=== PATIENT | female | born 1955 | race Caucasian/White ===

== ENCOUNTER 2022-09-25 12:59 | Observation (INO) | payer MEDICARE, BC ==
[~2022-09-25] VITALS: Ht 162.6 cm; Wt 78.6 kg
[2022-09-25 15:49] LABS: BASOPHILS % (AUTO) 0.3 % (0-1); EOSINOPHILS # (AUTO) 0.2 X10'3 (0-0.9); EOSINOPHILS % (AUTO) 4.2 % (0-6); HEMATOCRIT 37.2 % (35.0-45.0); HEMOGLOBIN 12.4 g/dl (12.0-16.0); LYMPHOCYTES # (AUTO) 1.9 X10'3 (1.1-4.8); LYMPHOCYTES % (AUTO) 34.1 % (21-51); MEAN CORPUSCULAR HEMOGLOBIN 28.6 PG (27.0-31.0); MEAN CORPUSCULAR HGB CONC 33.4 g/dL (33.0-36.5); MEAN CORPUSCULAR VOLUME 85.6 FL (78-98); MEAN PLATELET VOLUME 7.8 FL (7.4-10.4); MONOCYTES # (AUTO) 0.5 X10'3 (0-0.9); MONOCYTES % (AUTO) 8.7 % (2-12); NEUTROPHILS # (AUTO) 2.9 X10'3 (1.8-7.7); NEUTROPHILS % (AUTO) 52.7 % (42-75); PLATELET COUNT 214 X10'3 (140-440); RED BLOOD COUNT 4.35 X10'6 (4.20-5.60); RED CELL DISTRIBUTION WIDTH 13.7 % (11.5-14.5); WHITE BLOOD COUNT 5.6 X10'3 (4.5-11.0)
[2022-09-25 16:03] LABS: ALANINE AMINOTRANSFERASE 12 U/L (12-78); ALBUMIN 3.2 G/DL (3.4-5.0); ALKALINE PHOSPHATASE 62 IU/L (46-116); ANION GAP 5 (8-16); ASPARTATE AMINO TRANSFERASE 20 U/L (10-37); BILIRUBIN,TOTAL 0.4 MG/DL (0.1-1.0); BLOOD UREA NITROGEN 10 MG/DL (7-18); BUN/CREATININE RATIO 13.3 (10.0-20.0); CALCIUM 8.4 MG/DL (8.5-10.1); CHLORIDE 107 MMOL/L (99-107); CREATININE 0.75 MG/DL (0.40-0.90); GLUCOSE 96 MG/DL (70-104); POTASSIUM 3.4 MMOL/L (3.5-5.1); SODIUM 142 MMOL/L (135-145); TOTAL CARBON DIOXIDE 29.6 MMOL/L (24-32); TOTAL PROTEIN 6.4 G/DL (6.4-8.2); eGFR 77 ML/MIN
[2022-09-25 16:39] LABS: COLOR,URINE YELLOW (Yellow); GLUCOSE, URINE NEGATIVE (Neg); KETONES,URINE NEGATIVE (Neg); LEUKOCYTE ESTERASE ,URINE SMALL (Neg); NITRITES, URINE NEGATIVE (Neg); OCCULT BLOOD,URINE NEGATIVE (Neg); PROTEIN,URINE NEGATIVE (Neg); UROBILINOGEN,URINE 0.2 E.U/dL (0.2-1.0)
[2022-09-25 16:43] LABS: UA COLLECTION TYPE CLN CATCH MIDSTREAM
[2022-09-25 16:48] LABS: BACTERIA,URINE 1+ /HPF (Neg); RBC,URINE NONE SEEN /HPF (0-2); SQUAMOUS EPITHELIAL CELL,UR FEW /LPF (FEW)
[2022-09-25 16:49] LABS: CLARITY,URINE SLIGHTLY CLOUDY (Clear)
[2022-09-25] MEDS ORDERED: OMEP40CA21 PO (17:01)
[2022-09-25] MEDS ORDERED: FLUT1BLS10 PO (17:01)
[2022-09-25] MEDS ORDERED: FAMO40TA58 PO (17:01)
[2022-09-25] MEDS ORDERED: TOPI25TA49 PO (17:01)
[2022-09-25] MEDS ORDERED: ROSU10TA28 PO (17:01)
[2022-09-25] MEDS ORDERED: MONT-40 PO (17:01)
[2022-09-25] MEDS ORDERED: TRAZ-251 PO (17:01)
[2022-09-25] MEDS ORDERED: TRAM50TA2 PO (17:01)
[2022-09-25] MEDS ORDERED: DULO30CA52 PO (17:05)
[2022-09-25] MEDS ORDERED: ALBU8HFA PO (17:06)
[2022-09-25] MEDS ORDERED: clopidogrel 300mg tablet PO ONE (17:25)
[2022-09-25] MEDS ORDERED: ondansetron/PF 4mg/2ml inj IV PRN (17:25)
[2022-09-25] MEDS ORDERED: magnesium 4gm in 100ml NS 100 ML IV PRN (17:25)
[2022-09-25] MEDS ORDERED: aspirin 81mg, enteric-coated 1 TAB TABLET.DR PO ONE (17:25)
[2022-09-25] MEDS ORDERED: mag hydrox/Alum hydrox/simeth 30ml oral suspension PO PRN (17:25)
[2022-09-25] MEDS ORDERED: atorvastatin 20mg tablet PO ONE (17:25)
[2022-09-25] MEDS ORDERED: potassium Cl 40MEQ/1/2NS 520ml 520 ML IV PRN (17:25)
[2022-09-25] MEDS ORDERED: potassium Cl 20 mEq SR tablet PO PRN ×2 (17:25)
[2022-09-25] MEDS ORDERED: clopidogrel 75mg tablet PO ONE (17:50)
[2022-09-25] MEDS ORDERED: iohexol 350MG/ML 100ml bottle IV ONE (17:53)
--- NOTE | 2022-09-25 18:04 | NUR ---
Called MRI regarding patient's order for MRI. information technology director told me that they cannot do MRI on patient with spinal stimulator. I told this patient. Patient clarified that it was not a spinal stimulator but a TENS unit. I called MRI back to let him know that its a TENS unit. The information technology director said to me that either way, they can't still do MRI to the patient due to safety issue. ANNMARIE Tobar was told about the MRI cannot get done due to safety issue
[2022-09-25] MEDS ORDERED: CefTRIAXone/D5W-Rocephin 1gm 50 ML IV SCH ×2 (18:26→21:36)
[2022-09-25] MEDS ORDERED: albuterol 2.5 MG/3 ML nebule NEB PRN (18:30)
[2022-09-25] MEDS ORDERED: traZODone 50mg tablet PO PRN (18:30)
[2022-09-25] MEDS ORDERED: traMADol 50MG tablet PO PRN (18:30)
[2022-09-25] MEDS: normal saline 1000ml 1,000 ML IV SCH (18:47)
[2022-09-25] MEDS: K and/or MAG REPLACEMENT MC SCH (20:00)
[2022-09-25] MEDS: docusate sod 100mg capsule PO SCH (20:00)
[2022-09-25 22:00] VITALS: BP 125/68
[2022-09-26 02:00] VITALS: BP 126/47
--- NOTE | 2022-09-26 02:00 | NUR ---
Pt requested for SCD's to be turned off at this time. Will continue to monitor.
[2022-09-26] MEDS: normal saline 1000ml 1,000 ML IV SCH (04:32)
[2022-09-26 05:58] LABS: ANION GAP 4 (8-16); BLOOD UREA NITROGEN 8 MG/DL (7-18); CHLORIDE 112 MMOL/L (99-107); GLUCOSE 122 MG/DL (70-104); POTASSIUM 3.9 MMOL/L (3.5-5.1); SODIUM 145 MMOL/L (135-145); TOTAL CARBON DIOXIDE 29.2 MMOL/L (24-32)
[2022-09-26 05:59] LABS: ALANINE AMINOTRANSFERASE 13 U/L (12-78); ALBUMIN 2.8 G/DL (3.4-5.0); ALBUMIN/GLOBULIN RATIO 0.8 (1.1-1.5); ALKALINE PHOSPHATASE 59 IU/L (46-116); ASPARTATE AMINO TRANSFERASE 16 U/L (10-37); BASOPHILS % (AUTO) 0.5 % (0-1); BILIRUBIN,TOTAL 0.3 MG/DL (0.1-1.0); BUN/CREATININE RATIO 9.4 (10.0-20.0); CALCIUM 8.3 MG/DL (8.5-10.1); CHOL/HDL RATIO 2.5 (0.00-4.99); CHOLESTEROL 118 MG/DL (0-200); CREATININE 0.85 MG/DL (0.40-0.90); EOSINOPHILS # (AUTO) 0.2 X10'3 (0-0.9); EOSINOPHILS % (AUTO) 4.7 % (0-6); HDL CHOLESTEROL 47 MG/DL (35-60); HEMATOCRIT 35.6 % (35.0-45.0); HEMOGLOBIN 12.1 g/dl (12.0-16.0); LDL CHOLESTEROL 52 MG/DL (50-100); LYMPHOCYTES # (AUTO) 1.5 X10'3 (1.1-4.8); LYMPHOCYTES % (AUTO) 30.6 % (21-51); MAGNESIUM 1.8 MG/DL (1.5-2.4); MEAN CORPUSCULAR HEMOGLOBIN 28.9 PG (27.0-31.0); MEAN CORPUSCULAR HGB CONC 34.1 g/dL (33.0-36.5); MEAN CORPUSCULAR VOLUME 84.8 FL (78-98); MEAN PLATELET VOLUME 8.1 FL (7.4-10.4); MONOCYTES # (AUTO) 0.5 X10'3 (0-0.9); MONOCYTES % (AUTO) 9.8 % (2-12); NEUTROPHILS # (AUTO) 2.6 X10'3 (1.8-7.7); NEUTROPHILS % (AUTO) 54.4 % (42-75); PLATELET COUNT 189 X10'3 (140-440); RED BLOOD COUNT 4.19 X10'6 (4.20-5.60); RED CELL DISTRIBUTION WIDTH 13.4 % (11.5-14.5); TOTAL PROTEIN 6.3 G/DL (6.4-8.2); TRIGLYCERIDES 121 MG/DL (20-135); WHITE BLOOD COUNT 4.9 X10'3 (4.5-11.0); eGFR 67 ML/MIN
[2022-09-26 06:00] VITALS: BP 135/88
--- NOTE | 2022-09-26 07:06 | NUR ---
Problems reprioritized. Patient report given, questions answered & plan of care reviewed with Mylene MAX
[2022-09-26] MEDS ORDERED: pantoprazole 40mg Tablet.DR PO SCH (08:00)
[2022-09-26] MEDS ORDERED: aspirin 81mg, enteric-coated 1 TAB TABLET.DR PO SCH (08:00)
[2022-09-26] MEDS ORDERED: montelukast 10mg tablet PO SCH (08:00)
[2022-09-26] MEDS ORDERED: clopidogrel 75mg tablet PO SCH (08:00)
[2022-09-26] MEDS: K and/or MAG REPLACEMENT MC SCH (08:00)
[2022-09-26] MEDS ORDERED: duloxetine 30mg CAPSULE.DR PO SCH (08:00)
[2022-09-26] MEDS ORDERED: topiramate 25mg tablet PO SCH (08:00)
[2022-09-26] MEDS: docusate sod 100mg capsule PO SCH (08:09)
[2022-09-26 10:00] VITALS: BP 144/66
[2022-09-26] MEDS ORDERED: DULO30CA52 PO (13:10)
[2022-09-26] MEDS ORDERED: ASPI-1071 PO (13:10)
[2022-09-26] MEDS ORDERED: TRAZ-251 PO (13:10)
[2022-09-26] MEDS ORDERED: CLOP75TA34 PO (13:10)
[2022-09-26] MEDS ORDERED: TRAM50TA2 PO (13:10)
--- NOTE | 2022-09-26 14:15 | NUR ---
patient d/c this afternoon via wheelchair, RN went over d/c instructions with patient and spouse in room. Patient will make follow up appt
[2022-09-26] MEDS ORDERED: ROSUVASTATIN CALCIUM 5 MG TABLET PO SCH (21:00)
== END 2022-09-26 14:10 | disposition home or self-care (01) ==
LOC: ER 13:00 → ED HOLD 17:37 → ORTHO 4S 21:34
PROVIDERS: ADMIT Family Medicine; ATTEND Family Medicine
DX: G45.9 Transient cerebral ischemic attack, unspecified (principal); I63.9 Cerebral infarction, unspecified; K21.9 Gastro-esophageal reflux disease without esophagitis; J45.909 Unspecified asthma, uncomplicated; G43.909 Migraine, unspecified, not intractable, without status migrainosus; N30.10 Interstitial cystitis (chronic) without hematuria; R82.81 Pyuria; E87.6 Hypokalemia; F41.9 Anxiety disorder, unspecified; Z87.891 Personal history of nicotine dependence; Z79.02 Long term (current) use of antithrombotics/antiplatelets; Z79.82 Long term (current) use of aspirin; Z90.710 Acquired absence of both cervix and uterus; Z79.899 Other long term (current) drug therapy
CPT/HCPCS: 36415; 80053; 80061; 81001; 83735; 84484; 85025; 87081; 87088; 93005; 93306; 96361; 96365; 97161; 97530; 99284; G0378; J0696; J7030; J3490; Q9967

== ENCOUNTER 2023-11-14 18:19 | Inpatient (IN) | payer MEDICARE, BC ==
[~2023-11-14] VITALS: Ht 162.6 cm; Wt 76.3 kg
[~2023-11-14 18:19] MED LIST: ALBU8HFA PO; ASPI-1071 PO; CLOP75TA34 PO; DULO30CA52 PO; FLUT1BLS10 PO; MONT-40 PO; OMEP40CA21 PO; ROSU10TA28 PO; TOPI25TA49 PO; TRAM50TA2 PO; TRAZ-251 PO
[2023-11-14] MEDS: normal saline 1000ml 1,000 ML IV SCH (19:30)
[2023-11-14] MEDS ORDERED: potassium Cl 40MEQ/1/2NS 520ml 520 ML IV PRN (19:30)
[2023-11-14] MEDS ORDERED: ondansetron 4mg rapidly disintigrating tab PO PRN (19:30)
[2023-11-14] MEDS ORDERED: potassium Cl 20 mEq SR tablet PO PRN ×2 (19:30)
[2023-11-14] MEDS ORDERED: magnesium 2GM in 50ml NS 50 ML IV PRN (19:30)
[2023-11-14] MEDS ORDERED: magnesium hydroxide 30ml (MOM) UD suspension PO PRN (19:30)
[2023-11-14] MEDS ORDERED: acetaminophen 325mg tablet PO PRN (19:30)
[2023-11-14] MEDS ORDERED: magnesium 4gm in 100ml NS 100 ML IV PRN (19:30)
[2023-11-14] MEDS: ringers solution, lacted 1,000 ML IV ONE (19:42)
[2023-11-14 19:49] LABS: BASOPHILS # (AUTO) 0.1 X10'3 (0-0.2); BASOPHILS % (AUTO) 0.6 % (0-1); BILIRUBIN,URINE NEGATIVE (Neg); CLARITY,URINE CLEAR (Clear); COLOR,URINE ORANGE (Yellow); EOSINOPHILS # (AUTO) 0.3 X10'3 (0-0.9); EOSINOPHILS % (AUTO) 2.5 % (0-6); GLUCOSE, URINE NEGATIVE (Neg); HEMATOCRIT 39.6 % (35.0-45.0); HEMOGLOBIN 13.2 g/dl (12.0-16.0); KETONES,URINE NEGATIVE (Neg); LEUKOCYTE ESTERASE ,URINE NEGATIVE (Neg); LYMPHOCYTES # (AUTO) 1.9 X10'3 (1.1-4.8); LYMPHOCYTES % (AUTO) 14.2 % (21-51); MEAN CORPUSCULAR HGB CONC 33.4 g/dL (33.0-36.5); MEAN CORPUSCULAR VOLUME 86.9 FL (78-98); MEAN PLATELET VOLUME 7.9 FL (7.4-10.4); MONOCYTES # (AUTO) 1.3 X10'3 (0-0.9); MONOCYTES % (AUTO) 9.4 % (2-12); NEUTROPHILS # (AUTO) 9.9 X10'3 (1.8-7.7); NEUTROPHILS % (AUTO) 73.3 % (42-75); OCCULT BLOOD,URINE NEGATIVE (Neg); PH,URINE 5.5 (4.8-8.0); PLATELET COUNT 269 X10'3 (140-440); PROTEIN,URINE NEGATIVE (Neg); RED BLOOD COUNT 4.56 X10'6 (4.20-5.60); RED CELL DISTRIBUTION WIDTH 14.5 % (11.5-14.5); UROBILINOGEN,URINE 0.2 E.U/dL (0.2-1.0); WHITE BLOOD COUNT 13.5 X10'3 (4.5-11.0)
[2023-11-14] MEDS ORDERED: iohexol 300mg/ml 100ml inj. ONE (19:51)
[2023-11-14 19:52] LABS: NITRITES, URINE NEGATIVE (Neg); UA COLLECTION TYPE CLN CATCH MIDSTREAM
[2023-11-14] MEDS: docusate sod 100mg capsule PO SCH (20:00)
[2023-11-14] MEDS: K and/or MAG REPLACEMENT MC SCH (20:00)
[2023-11-14 20:05] LABS: APTT 26 SECONDS (22-32); PROTHROMBIN TIME 10.8 SECONDS (9.0-12.0)
[2023-11-14 20:06] LABS: ALBUMIN 3.3 G/DL (3.4-5.0); ANION GAP 9 (8-16); BLOOD UREA NITROGEN 11 MG/DL (7-18); BUN/CREATININE RATIO 10.6 (10.0-20.0); CALCIUM 8.3 MG/DL (8.5-10.1); CHLORIDE 106 MMOL/L (99-107); CREATININE 1.04 MG/DL (0.40-0.90); GLUCOSE 128 MG/DL (70-104); LIPASE 21 U/L (16-77); MAGNESIUM 1.5 MG/DL (1.5-2.4); PHOSPHORUS 3.6 MG/DL (2.3-4.5); POTASSIUM 4.3 MMOL/L (3.5-5.1); SODIUM 140 MMOL/L (135-145); TOTAL CARBON DIOXIDE 25.3 MMOL/L (24-32); eCRCL 43 ML/MIN; eGFR 53 ML/MIN
[2023-11-14] MEDS: HYDROmorphone inj. 0.5 MG/0.5 ML DISP.SYRIN IV PRN (20:21)
[2023-11-14] MEDS: ondansetron/PF 4mg/2ml inj IV PRN (22:39)
[2023-11-14] MEDS ORDERED: sevoflurane 250ml liquid IH ONE (23:02)
[2023-11-14] MEDS ORDERED: proCHLORperazine 10 MG/2 ml inj IV PRN (23:05)
[2023-11-14] MEDS ORDERED: ondansetron/PF 4mg/2ml inj IV PRN (23:05)
[2023-11-14] MEDS ORDERED: morphine 2 MG/ML inj. syringe IV PRN (23:05)
[2023-11-14] MEDS ORDERED: meperidine/PF 25mg/ml syringe IV PRN ×2 (23:05)
[2023-11-14] MEDS ORDERED: ringers solution, lacted 1,000 ML IV SCH (23:05)
[2023-11-14] MEDS ORDERED: enalaprilat dihydrate 2.5mg/2ml vial IV PRN (23:05)
[2023-11-14] MEDS ORDERED: midazolam 1 mg/ML 2ml injection ONE (23:10)
[2023-11-14] MEDS ORDERED: fentaNYL /PF 50mcg/ml 5ml ampule ONE (23:11)
[2023-11-14] MEDS ORDERED: rocuronium 10mg/ml inj IV ONE (23:11)
[2023-11-14] MEDS ORDERED: propofol inj 20 ML IV ONE (23:11)
[2023-11-14] MEDS ORDERED: ceFOXitin 1000 MG inj ONE ×2 (23:29)
[2023-11-15] VITALS (29 sets, daily range): BP systolic 129–183; BP diastolic 54–96; PULSE 65–94; RESP 14–31; TEMP 97.4–98.9; O2SAT 92–99
[2023-11-15] MEDS ORDERED: dexamethasone sod phosphate 4mg/ml inj. ONE (00:24)
[2023-11-15] MEDS ORDERED: ondansetron/PF 4mg/2ml inj ONE (00:24)
[2023-11-15] MEDS ORDERED: BUPIVACAINE liposomal/PF 13.3 MG/ML vial IM ONE (00:30)
[2023-11-15] MEDS ORDERED: BUPIVAcaine/PF 2.5mg/ml (0.25%) 10ml vial ONE (00:30)
[2023-11-15] MEDS ORDERED: naloxone 0.4 mg/ml inj IV PRN (00:45)
[2023-11-15] MEDS ORDERED: sugammadex 200mg/2ml injection IV ONE (00:49)
[2023-11-15] MEDS: meperidine/PF 25mg/ml syringe IV PRN (01:04)
[2023-11-15] MEDS: morphine 4 MG/ML inj SYRINge IV PRN (01:09)
[2023-11-15] MEDS: labetalol 20mg/4ml (5mg/ml) syringe IV PRN (01:09)
[2023-11-15] MEDS: HYDROmorphone inj. 0.5 MG/0.5 ML DISP.SYRIN IV ONE (01:53)
[2023-11-15 08:02] LABS: BASOPHILS % (AUTO) 0.1 % (0-1); EOSINOPHILS % (AUTO) 0.1 % (0-6); HEMATOCRIT 37.9 % (35.0-45.0); HEMOGLOBIN 12.5 g/dl (12.0-16.0); LYMPHOCYTES # (AUTO) 0.5 X10'3 (1.1-4.8); LYMPHOCYTES % (AUTO) 4.3 % (21-51); MEAN CORPUSCULAR HEMOGLOBIN 28.5 PG (27.0-31.0); MEAN CORPUSCULAR HGB CONC 32.9 g/dL (33.0-36.5); MEAN CORPUSCULAR VOLUME 86.7 FL (78-98); MEAN PLATELET VOLUME 8.2 FL (7.4-10.4); MONOCYTES # (AUTO) 0.5 X10'3 (0-0.9); MONOCYTES % (AUTO) 4.6 % (2-12); NEUTROPHILS # (AUTO) 10.2 X10'3 (1.8-7.7); NEUTROPHILS % (AUTO) 90.9 % (42-75); PLATELET COUNT 231 X10'3 (140-440); RED BLOOD COUNT 4.38 X10'6 (4.20-5.60); RED CELL DISTRIBUTION WIDTH 14.4 % (11.5-14.5); WHITE BLOOD COUNT 11.2 X10'3 (4.5-11.0)
[2023-11-15 08:22] LABS: ALANINE AMINOTRANSFERASE 28 U/L (12-78); ALBUMIN 2.8 G/DL (3.4-5.0); ALBUMIN/GLOBULIN RATIO 0.8 (1.1-1.5); ALKALINE PHOSPHATASE 54 IU/L (46-116); ANION GAP 7 (8-16); ASPARTATE AMINO TRANSFERASE 26 U/L (10-37); BLOOD UREA NITROGEN 10 MG/DL (7-18); CALCIUM 7.8 MG/DL (8.5-10.1); CHLORIDE 104 MMOL/L (99-107); GLUCOSE 178 MG/DL (70-104); MAGNESIUM 1.3 MG/DL (1.5-2.4); PHOSPHORUS 3.9 MG/DL (2.3-4.5); POTASSIUM 4.3 MMOL/L (3.5-5.1); SODIUM 138 MMOL/L (135-145); TOTAL CARBON DIOXIDE 27.1 MMOL/L (24-32); TOTAL PROTEIN 6.5 G/DL (6.4-8.2); eCRCL 46 ML/MIN; eGFR 55 ML/MIN
[2023-11-15] MEDS: piperacillin/tazo 3.375gm/50ml 50 ML IV SCH (08:56)
[2023-11-15] MEDS: atorvastatin 20mg tablet PO SCH (21:00)
[2023-11-15] MEDS: magnesium Cl slow-release 64mg tablet PO PRN (21:33)
[2023-11-15] MEDS: traZODone 50mg tablet PO PRN (21:42)
[2023-11-16] VITALS (8 sets, daily range): BP systolic 129–155; BP diastolic 58–89; PULSE 84–104; RESP 16–22; TEMP 97.2–98.7; O2SAT 90–100
[2023-11-16 06:43] LABS: BASOPHILS % (AUTO) 0.1 % (0-1); EOSINOPHILS # (AUTO) 0.1 X10'3 (0-0.9); EOSINOPHILS % (AUTO) 0.7 % (0-6); HEMATOCRIT 32.6 % (35.0-45.0); HEMOGLOBIN 11.1 g/dl (12.0-16.0); LYMPHOCYTES # (AUTO) 1.4 X10'3 (1.1-4.8); LYMPHOCYTES % (AUTO) 13.2 % (21-51); MEAN CORPUSCULAR HEMOGLOBIN 29.2 PG (27.0-31.0); MEAN CORPUSCULAR VOLUME 86.1 FL (78-98); MONOCYTES % (AUTO) 9.7 % (2-12); NEUTROPHILS % (AUTO) 76.3 % (42-75); PLATELET COUNT 221 X10'3 (140-440); RED BLOOD COUNT 3.79 X10'6 (4.20-5.60); RED CELL DISTRIBUTION WIDTH 14.2 % (11.5-14.5); WHITE BLOOD COUNT 10.5 X10'3 (4.5-11.0)
[2023-11-16 07:01] LABS: ALANINE AMINOTRANSFERASE 17 U/L (12-78); ALBUMIN 2.5 G/DL (3.4-5.0); ALBUMIN/GLOBULIN RATIO 0.7 (1.1-1.5); ALKALINE PHOSPHATASE 44 IU/L (46-116); ANION GAP 11 (8-16); ASPARTATE AMINO TRANSFERASE 15 U/L (10-37); BLOOD UREA NITROGEN 12 MG/DL (7-18); CALCIUM 7.4 MG/DL (8.5-10.1); CHLORIDE 104 MMOL/L (99-107); GLUCOSE 113 MG/DL (70-104); MAGNESIUM 1.6 MG/DL (1.5-2.4); PHOSPHORUS 2.2 MG/DL (2.3-4.5); POTASSIUM 3.6 MMOL/L (3.5-5.1); SODIUM 138 MMOL/L (135-145); TOTAL CARBON DIOXIDE 23.3 MMOL/L (24-32); TOTAL PROTEIN 6.2 G/DL (6.4-8.2); eCRCL 46 ML/MIN; eGFR 55 ML/MIN
[2023-11-16] MEDS: topiramate 25mg tablet PO SCH (08:00)
[2023-11-16] MEDS: montelukast 10mg tablet PO SCH (08:00)
[2023-11-16] MEDS: duloxetine 30mg CAPSULE.DR PO SCH (08:00)
[2023-11-16] MEDS: pantoprazole 40mg Tablet.DR PO SCH (08:00)
[2023-11-17] VITALS (8 sets, daily range): BP systolic 139–153; BP diastolic 58–92; PULSE 79–101; RESP 18–24; TEMP 97–97.8; O2SAT 92–98
[2023-11-17 06:57] LABS: BASOPHILS % (AUTO) 0.4 % (0-1); EOSINOPHILS # (AUTO) 0.4 X10'3 (0-0.9); EOSINOPHILS % (AUTO) 4.2 % (0-6); HEMATOCRIT 32.3 % (35.0-45.0); HEMOGLOBIN 10.8 g/dl (12.0-16.0); LYMPHOCYTES # (AUTO) 1.3 X10'3 (1.1-4.8); LYMPHOCYTES % (AUTO) 15.3 % (21-51); MEAN CORPUSCULAR HEMOGLOBIN 29.4 PG (27.0-31.0); MEAN CORPUSCULAR HGB CONC 33.6 g/dL (33.0-36.5); MEAN CORPUSCULAR VOLUME 87.4 FL (78-98); MEAN PLATELET VOLUME 7.8 FL (7.4-10.4); MONOCYTES # (AUTO) 0.8 X10'3 (0-0.9); MONOCYTES % (AUTO) 9.2 % (2-12); NEUTROPHILS % (AUTO) 70.9 % (42-75); PLATELET COUNT 239 X10'3 (140-440); RED BLOOD COUNT 3.69 X10'6 (4.20-5.60); RED CELL DISTRIBUTION WIDTH 13.9 % (11.5-14.5); WHITE BLOOD COUNT 8.5 X10'3 (4.5-11.0)
[2023-11-17 07:14] LABS: ALANINE AMINOTRANSFERASE 20 U/L (12-78); ALBUMIN 2.2 G/DL (3.4-5.0); ALBUMIN/GLOBULIN RATIO 0.5 (1.1-1.5); ALKALINE PHOSPHATASE 47 IU/L (46-116); ANION GAP 8 (8-16); ASPARTATE AMINO TRANSFERASE 21 U/L (10-37); BILIRUBIN,TOTAL 1.1 MG/DL (0.1-1.0); BLOOD UREA NITROGEN 12 MG/DL (7-18); BUN/CREATININE RATIO 12.4 (10.0-20.0); CALCIUM 8.1 MG/DL (8.5-10.1); CHLORIDE 107 MMOL/L (99-107); CREATININE 0.97 MG/DL (0.40-0.90); GLUCOSE 84 MG/DL (70-104); MAGNESIUM 1.8 MG/DL (1.5-2.4); PHOSPHORUS 2.3 MG/DL (2.3-4.5); POTASSIUM 3.5 MMOL/L (3.5-5.1); SODIUM 140 MMOL/L (135-145); TOTAL PROTEIN 6.3 G/DL (6.4-8.2); eCRCL 47 ML/MIN; eGFR 57 ML/MIN
[2023-11-18] MEDS: HYDROmorphone inj. 0.5 MG/0.5 ML DISP.SYRIN IV PRN (00:33)
[2023-11-18] MEDS: mag hydrox/Alum hydrox/simeth 30ml oral suspension PO PRN (00:43)
[2023-11-18] MEDS: metoclopramide 5 mg/ml inj IV PRN (04:31)
[2023-11-18 06:00] VITALS: BP 121/65; PULSE 81; RESP 13; TEMP 96.6; O2SAT 93
[2023-11-18 06:51] LABS: BASOPHILS % (AUTO) 0.2 % (0-1); EOSINOPHILS # (AUTO) 0.1 X10'3 (0-0.9); EOSINOPHILS % (AUTO) 1.2 % (0-6); HEMATOCRIT 38.1 % (35.0-45.0); HEMOGLOBIN 12.5 g/dl (12.0-16.0); LYMPHOCYTES # (AUTO) 1.1 X10'3 (1.1-4.8); LYMPHOCYTES % (AUTO) 9.1 % (21-51); MEAN CORPUSCULAR HEMOGLOBIN 28.6 PG (27.0-31.0); MEAN CORPUSCULAR HGB CONC 32.7 g/dL (33.0-36.5); MEAN CORPUSCULAR VOLUME 87.4 FL (78-98); MEAN PLATELET VOLUME 7.8 FL (7.4-10.4); MONOCYTES % (AUTO) 8.1 % (2-12); NEUTROPHILS # (AUTO) 9.6 X10'3 (1.8-7.7); NEUTROPHILS % (AUTO) 81.4 % (42-75); PLATELET COUNT 338 X10'3 (140-440); RED BLOOD COUNT 4.36 X10'6 (4.20-5.60); RED CELL DISTRIBUTION WIDTH 14.2 % (11.5-14.5); WHITE BLOOD COUNT 11.8 X10'3 (4.5-11.0)
[2023-11-18 06:53] LABS: ALBUMIN 1.8 G/DL (3.4-5.0); ALBUMIN/GLOBULIN RATIO 0.5 (1.1-1.5); ALKALINE PHOSPHATASE 36 IU/L (46-116); ANION GAP 11 (8-16); ASPARTATE AMINO TRANSFERASE 14 U/L (10-37); BILIRUBIN,TOTAL 0.5 MG/DL (0.1-1.0); BLOOD UREA NITROGEN 11 MG/DL (7-18); BUN/CREATININE RATIO 14.7 (10.0-20.0); CALCIUM 7.4 MG/DL (8.5-10.1); CHLORIDE 105 MMOL/L (99-107); CREATININE 0.75 MG/DL (0.40-0.90); GLUCOSE 155 MG/DL (70-104); MAGNESIUM 1.8 MG/DL (1.5-2.4); PHOSPHORUS 2.6 MG/DL (2.3-4.5); POTASSIUM 3.7 MMOL/L (3.5-5.1); SODIUM 137 MMOL/L (135-145); TOTAL CARBON DIOXIDE 21.2 MMOL/L (24-32); TOTAL PROTEIN 5.5 G/DL (6.4-8.2); eCRCL 61 ML/MIN; eGFR 77 ML/MIN
[2023-11-18 06:59] LABS: ALANINE AMINOTRANSFERASE < 6 U/L (12-78)
[2023-11-18 08:00] VITALS: RESP 18; O2SAT 93
[2023-11-18 11:00] VITALS: BP 155/65; PULSE 73; RESP 19; TEMP 97.1; O2SAT 94
[2023-11-18] MEDS ORDERED: METR-159 PO (11:54)
[2023-11-18] MEDS ORDERED: CIPR-259 PO (11:54)
[2023-11-18] MEDS: HYDROcodone/acetaminophen 10/325mg tab PO PRN (13:40)
[2023-11-18 15:00] VITALS: BP 135/70; PULSE 80; RESP 18; TEMP 97.5; O2SAT 95
== END 2023-11-18 15:55 | disposition home or self-care (01) | DRG 330 ==
LOC: ER 18:21 → ED HOLD 19:29 → EDBEDREQ 21:36 → PCU 3S 11-15 02:20
PROVIDERS: ADMIT Surgery Surgical Critical Care; ATTEND Internal Medicine
PROC: 0D9670Z Drainage of Stomach with Drainage Device, Via Natural or Artificial Opening (ICD-10-PCS; 2023-11-14)
PROC: BW211ZZ Computerized Tomography (CT Scan) of Abdomen and Pelvis using Low Osmolar Contrast (ICD-10-PCS; principal; 2023-11-14 23:02)
PROC: 0DBF0ZZ Excision of Right Large Intestine, Open Approach (ICD-10-PCS; 2023-11-15)
DX: K56.2 Volvulus (principal); K46.0 Unspecified abdominal hernia with obstruction, without gangrene; R65.10 Systemic inflammatory response syndrome (SIRS) of non-infectious origin without acute organ dysfunction; J45.909 Unspecified asthma, uncomplicated; I48.91 Unspecified atrial fibrillation; G89.29 Other chronic pain; F32.A Depression, unspecified; E78.00 Pure hypercholesterolemia, unspecified; F41.9 Anxiety disorder, unspecified; K21.9 Gastro-esophageal reflux disease without esophagitis; R73.03 Prediabetes; Z83.3 Family history of diabetes mellitus; Z80.0 Family history of malignant neoplasm of digestive organs; Z79.82 Long term (current) use of aspirin; Z90.710 Acquired absence of both cervix and uterus; Z79.02 Long term (current) use of antithrombotics/antiplatelets; Z86.73 Personal history of transient ischemic attack (TIA), and cerebral infarction without residual deficits; Z82.49 Family history of ischemic heart disease and other diseases of the circulatory system; Z84.1 Family history of disorders of kidney and ureter; Z80.8 Family history of malignant neoplasm of other organs or systems; Z87.891 Personal history of nicotine dependence; Z88.6 Allergy status to analgesic agent; Z88.5 Allergy status to narcotic agent; Z88.8 Allergy status to other drugs, medicaments and biological substances; Z79.899 Other long term (current) drug therapy; Z85.828 Personal history of other malignant neoplasm of skin; Z88.1 Allergy status to other antibiotic agents
CPT/HCPCS: 36415; 74177; 80048; 80053; 81003; 83690; 83735; 84100; 84145; 84484; 85025; 85610; 85651; 85730; 86885; 86900; 86901; 87081; 97116; 97161; 97530; 99285; A4615; A4618; A6253; A6258; A6449; A7000; C1758; C9290; G0378; J0694; J1100; J1170; J2175; J2250; J2270; J2405; J2543; J2704; J2765; J3010; J3490; J7030; J7040; J7120; Q9967